=== PATIENT | female | born 1970 | race African-American/Black ===

== ENCOUNTER → 2016-06-07 | Outpatient (CLI) | payer SELFPAY ==
[~2016-06-07] MED LIST: ABILIFY5 MG PO; CLARINEX5 MG PO; CLARITIN10 M1 PO; CLARITIN10 M2 PO; DICLOFENAC PO; FEOSOL PO; FERRO-TIME325 MG PO; FERROUS SULFATE PO; FLEXERIL PO; FLEXERIL10 MG PO; FLONASE16 GM; GLUCOPHAGE500 MG PO; IRON PILL PO; IRON325 ( 65 ) PO; KEFLEX PO; KEPPRA250 MG; LISINOPRIL10 MG; LISINOPRIL10 MG PO; LORTAB 10/500 T1 TAB PO; LORTAB 7.5-5001 TAB PO; MEDROL PO; MELOXICAM15 MG PO; METFORMIN HCL500 M1 PO; METOPROLOL SUCC25 MG PO; MOBIC PO; MULTI-VITAMIN1 EACH PO; MULTIVITAMINS1 EAC3; NAPROXEN; NASONEX17 GM; NEURONTIN PO; NEURONTIN600 MG PO; NORCO 10-325 TA1 TAB PO; NORCO 10/3251 TAB PO; NORVASC PO; NORVASC10 MG PO; PHENERGAN25 M1 PO; PREDNISONE PO; PRILOSEC PO; PROMETHAZINE V120 ML PO; PROVERA PO; SUMATRIPTAN SUC50 M1 PO; TAMIFLU75 M1 PO; TOPAMAX PO; TOPAMAX200 MG PO; TRAZODONE HCL100 MG PO; ULTRAM PO; ZANAFLEX PO; ZANAFLEX4 M1 PO
== END | disposition home or self-care (01) ==
LOC: CBAR 09:55
DX: E66.01 Morbid (severe) obesity due to excess calories (principal)
CPT/HCPCS: 76000

== ENCOUNTER → 2016-07-24 | Day surgery (SDC) | payer MEDICARE ==
--- NOTE | ~2016-07-24 | OR ---
Unit #: [id number] #: [id number] Patient: FANG KAUR [id number] [address] [place], [place] [address] [id number] O MR#: [id number] NAME: FANG KAUR ROOM: Date of Procedure: 07/24/2016 Admission Date: 07/24/2016 Surgeon: Sebastian Mendez M.D. : 1970 Attending Physician: Sebastian Mendez M.D. Primary Care Physician: Ishmael Jeff A.P.R.N. OPERATIVE REPORT JOB NOTE: CC: [facility] PREOPERATIVE DIAGNOSES 1. Herniated nucleus pulposus. 2. Radiculopathy. 3. Back pain. POSTOPERATIVE DIAGNOSES 1. Herniated nucleus pulposus. 2. Radiculopathy. 3. Back pain. PROCEDURE PERFORMED Lumbar epidural steroid injection with intravenous sedation and fluoroscopic guidance for needle localization. INDICATIONS FOR PROCEDURE The patient is a 46-year-old female with back and left much greater right lower extremity pain with some numbness and intermittent weakness. She has known left-sided L5-S1 disk herniation. She was treated with epidural steroid injections in 2008 and 2012 and last year with extremely good results. The pain has returned at this point at the same distribution. The patient is not a surgical candidate due to morbid obesity. Physical examination and complaints are consistent with a known pathology at the L5-S1 level. Plan is to repeat an epidural steroid injection based on history, pathology, symptomatology, and response to treatment. DESCRIPTION OF PROCEDURE The patient was placed in the seated position. Standard monitors were applied. 2 mg of Versed were given for sedation and anxiolysis, which were adequate. Vital signs remained stable. Sterile prep and drape of the lumbar area was performed. The skin then at the L5 level was localized with 1% lidocaine. A long 18-gauge Crowdlytead needle was then advanced via loss of resistance technique and fluoroscopic guidance in toward the epidural space. After confirming proper positioning with fluoroscopy and radiographic contrast, 80 mg of Depo-Medrol and 4 mL of 0.125% bupivacaine were deposited. The patient tolerated the procedure otherwise well and was discharged to the recovery room in stable condition. Dictated by... Sebastian Mendez M.D. Unit #: [id number] #: [id number] Patient: FANG KAUR MAURI/donny TD: 07/24/2016 10:03 JOB #: [id number] OPERATIVE REPORT Page 1 of 1 X Sebastian Mendez MD X PROCEDURE OPERATIVE NOTE
== END | disposition home or self-care (01) ==
LOC: CCSC 08:23
DX: M51.17 Intervertebral disc disorders with radiculopathy, lumbosacral region (principal); E66.01 Morbid (severe) obesity due to excess calories; E11.9 Type 2 diabetes mellitus without complications; I10 Essential (primary) hypertension
CPT/HCPCS: 82947; J1040; J2250

== ENCOUNTER → 2016-11-12 | Outpatient (CLI) | payer MEDICARE ==
[~2016-11-12] MED LIST changes: +DULOXETINE HCL60 MG PO; +FERROUS GLUCON324 MG PO; +HYDROCODON-ACE1 EAC9 PO; +KEPPRA XR500 MG PO; +MAGNESIUM500 MG PO; +METFORMIN HCL500 M4 PO; +VITAMIN B-1100 M1 PO; +VITAMIN D250000 UNIT PO; +ZESTRIL10 M2 PO
--- NOTE | ~2016-11-12 | MR113 ---
[facility] A Service of [facility] & [facility] RADIOLOGY TEXT RESULTS PATIENT: FANG KAUR LOCATION: [facility] : 72 UNIT #: [id number] AGE: [address]: Dave Damian II, MD SEX: F ORDER DR: [id number] [place] [id number] O MR#: [id number] Acc #: [id number] NAME: FANG KAUR : 1970 SEX: F STUDY DATE/TIME: 11/12/2016 14:10 UNIT: [facility] ROOM: STUDY DESCRIPTION: MR Lumbar Wo Contrast Attending Physician: Dave Damian II., M.D. Referring Physician: Dave aDmian II., M.D. Ordering Physician: Dave Damian II., M.D. Primary Care Physician: Ishmael Jeff A.P.R.N. MRI CENTER REPORT This report is preliminary unless electronic signature is present. EXAM Lumbar spine MRI without contrast, 11/12/2016 PROCEDURE Routine unenhanced lumbar spine MRI. COMPARISON None HISTORY Chronic low back pain for several years, increasing for the past year and now radiating into the left leg. FINDINGS There is a slight 5-1 retrolisthesis but alignment is otherwise normal. Bone marrow signal is within normal limits and the distal cord and conus are normal in position and appearance. The paraspinous soft tissues are unremarkable. At 1-2, the disc, canal and foramina are normal. At 2-3, there is mild facet arthropathy but the disc is normal and there is no canal or foraminal stenosis. At 3-4, there is a slight disc bulge and facet arthropathy. There is no canal stenosis. There is borderline, if any, right foraminal narrowing but there is mild left foraminal stenosis. At 4-5, there is a slight disc bulge and there is facet arthropathy but no canal stenosis and perhaps borderline left and no right foraminal stenosis. At 5-1, there is a disc bulge and central disc protrusion. Overall there [facility] A Service of [facility] RADIOLOGY TEXT RESULTS PATIENT: FANG KAUR LOCATION: [facility] : 72 UNIT #: [id number] AGE: [address]: Dave Damian II, MD SEX: F ORDER DR: is no canal stenosis or substantial lateral recess compromise. There is mild left and borderline right foraminal narrowing. IMPRESSION Fairly modest lower lumbar degenerative change. Areas of modest foraminal compromise noted above. No acute appearing abnormality. Dictated by... Kenney Colbert M.D. THIS IS AN ELECTRONICALLY VERIFIED REPORT Kenney Colbert M.D. at 11/16/2016 4:52 PM KIMBERLI/frandy TD: 11/13/2016 11:05 JOB #: [id number] MRI CENTER REPORT Page 1 of 1
== END | disposition home or self-care (01) ==
LOC: SMRI 13:47
DX: R20.2 Paresthesia of skin (principal); M47.896 Other spondylosis, lumbar region; M99.83 Other biomechanical lesions of lumbar region; M48.06 Spinal stenosis, lumbar region
CPT/HCPCS: 72148